=== PATIENT | male | born 1950 | race Caucasian/White ===

== ENCOUNTER 2020-08-27 22:44 | Emergency (ER) | payer OTHER, SELFPAY ==
--- NOTE | ~2020-08-27 | XR_ITS ---
EXAMINATION: XR chest 1V portable EXAM DATE: 08/28/2020 00:01 INDICATION: chest pain TECHNIQUE: Portable AP frontal chest x-ray was obtained. Comparison is made to prior examination from 02/29/2016. FINDINGS: Chronic elevation of the left hemidiaphragm which could indicate paralysis. No confluent co nsolidation, pneumothorax or pleural effusion suspected. Cardiomediastinal silhouette is normal. Ther e are mild bony degenerative changes. IMPRESSION: 1. Elevated left hemidiaphragm, possible paralysis. 2. No acute cardiopulmonary findings. Reviewed, dictated and finalized at location G. [employer]
[2020-08-27 22:43] VITALS: BP 149/79; PULSE 102; RESP 17; TEMP 37.1; O2SAT 97
--- NOTE | 2020-08-27 22:49 | ECG_ITS ---
Measurements Intervals [place] Rate: 102 P: 26 NM: 189 QRS: -44 QRSD: 110 T: 59 QT: 344 QTc: 448 Interpretive Statements SINUS TACHYCARDIA LEFT AXIS DEVIATION BORDERLINE ECG Electronically Signed On 08-28-2020 7:31:04 INDUSTRY CONSULTANT by Damian Rodriguez D.O.
[2020-08-27] MEDS: MORPHINE SULFATE (*CRX) 4 MG/ML INJ IV PUSH (23:07)
[2020-08-27 23:10] LABS: Basophils Percent Auto 0.4 % (0.2-1.2); Eosinophils Absolute Auto 0.1 K/mm3 (0-0.3); Eosinophils Percent Auto 0.6 % (0-4.4); Hematocrit 41.7 % (42.0-52.0); Hemoglobin 14.2 g/dL (14.0-18.0); Immature Granulocyte Absolute 0.03 K/mm3 (0.00-0.031); Immature Granulocyte Percent A 0.3 % (0-0.5); Lymphocytes Absolute Auto 1.78 K/mm3 (0.9-3.2); Mean Corpuscular HGB Conc 34.1 g/dl (32-36); Mean Corpuscular Hemoglobin 30.1 pg (26-34); Mean Corpuscular Volume 88.3 fl (80-100); Mean Platelet Volume 8.7 fl (7.4-10.4); Monocytes Absolute Auto 0.9 K/mm3 (0.1-0.6); Neutrophils Absolute Auto 7.6 K/mm3 (1.3-6.7); Neutrophils Percent Auto 72.7 % (45.5-73.1); Platelet Count Result 277 k/mm3 (150-375); Red Blood Count 4.72 M/mm3 (4.6-6.20); Red Cell Distribution Width 12.4 % (11.5-14.5); White Blood Count 10.5 K/mm3 (4.5-10.0)
[2020-08-27 23:11] VITALS: BP 134/80; PULSE 100; RESP 17; O2SAT 96
[2020-08-27 23:19] LABS: Prothrombin Time 14.1 Seconds (11.1-14.7)
[2020-08-27 23:20] LABS: Partial Thromboplastin Time 29.8 SECONDS (22.3-36.8)
[2020-08-27 23:21] LABS: Alanine Aminotransferase 21 U/L (4-50); Albumin Level 3.9 g/dL (3.5-5.1); Alkaline Phosphatase 42 U/L (38-126); Anion Gap 6 mmol/L (8-16); Aspartate Amino Transferase 33 U/L (17-59); Bilirubin,Total 0.8 mg/dL (0.2-1.3); Blood Urea Nitrogen 15 mg/dL (9-20); Calcium 9.2 mg/dL (8.4-10.2); Carbon Dioxide 29 mmol/L (22-30); Chloride 101 mmol/L (98-107); Estimated CRCL calculation 87 ml/min; Estimated Glomerular Filt Rate > 60; Glucose 228 mg/dL (75-110); Lipase 53 U/L (23-300); Potassium 4.3 mmol/L (3.4-5.0); Sodium 136 mmol/L (137-145)
[2020-08-27 23:32] LABS: Troponin I < 0.012 ng/mL (0.000-0.034)
[2020-08-27] MEDS: NITROGLYCERIN SL 0.4 MG TABLET SUBLINGUAL (23:34)
--- NOTE | 2020-08-27 23:34 | PC.NURSE ---
Vitals pre nitro: 100HR, 14R, 96% RA, 126/84 pain: 6
--- NOTE | 2020-08-27 23:40 | ED.GENADULT ---
HPI - General Adult General Chief complaint: Chest Pain Stated complaint: chest pain Time Seen by Provider: 08/27/20 22:49 History of Present Illness HPI narrative: Patient is 69-year-old gentleman who presents the emergency department with chief complaint of left arm and left-sided chest pain. Patient states the pain began at approximately 11:00 today he took a nitroglycerin that helped it a little bit and then took a subsequent nitroglycerin that did not help the pain. Patient states that he called his primary care physician who is at the [place] and they recommended that he come to the emergency department. The patient waited till this evening and decided to come to the emergency department because the pain was not getting better. The patient states the pain is sharp states it is worse with movement and improved with rest. Related Data Allergies Allergy/AdvReac Type Severity Reaction Status Date / Time No Known Allergies Allergy Unverified 03/01/16 06:59 Review of Systems Review of Systems: Narrative: A 10 system review of systems was completed on the patient and is negative except for what is stated in the HPI. Nursing and ancillary documentation was reviewed. PMFSH Comments Patient has history of cardiac disease has had a prior stent placement Social history the patient is a Exam Narrative: Exam Narrative: GENERAL: Well-appearing, well-nourished, and in no acute distress. HEAD: Normocephalic, atraumatic. EYES: PERRLA and EOMI. ENT: Nares clear, no rhinorrhea or epistaxis. Mucous membranes moist. NECK: Supple. CHEST: Clear to auscultation. No respiratory distress. HEART: Regular rate and rhythm. No murmur heard. Normal peripheral pulses. ABDOMEN: Soft, nontender, nondistended, normal active bowel sounds. EXTREMITIES: Normal range of motion. No edema. There is tenderness to palpation in the left shoulder that reproduces the patient's pain SKIN: Warm, dry, no rash. NEURO: No focal deficits. Alert and oriented x3. PSYCH: Normal mood and affect. Course Course Emergency Course: She showed sinus rhythm no ST elevation or ST depression Troponins were negative x2 chest x-ray showed no evidence of acute finding no widened mediastinum. Vital Signs Vital signs: Vital Signs Temperature 37.1 C 08/27/20 22:43 Pulse Rate 102 H 08/27/20 22:43 Respiratory Rate 17 08/27/20 22:43 Blood Pressure 149/79 H 08/27/20 22:43 Pulse Oximetry 97 08/27/20 22:43 Temperature 37.1 C 08/27/20 22:43 Pulse Rate 74 08/28/20 02:42 Respiratory Rate 18 08/28/20 02:42 Blood Pressure 119/76 08/28/20 02:42 Pulse Oximetry 93 08/28/20 02:42 Medical Decision Making Vital Signs Vital Signs: Vital Signs Temperature 37.1 C 08/27/20 22:43 Pulse Rate 102 H 08/27/20 22:43 Respiratory Rate 17 08/27/20 22:43 Blood Pressure 149/79 H 08/27/20 22:43 Pulse Oximetry 97 08/27/20 22:43 Temperature 37.1 C 08/27/20 22:43 Pulse Rate 74 08/28/20 02:42 Respiratory Rate 18 08/28/20 02:42 Blood Pressure 119/76 08/28/20 02:42 Pulse Oximetry 93 08/28/20 02:42 Lab Data Result diagrams: 08/27/20 23:01 08/27/20 23:01 Labs: Lab Results 08/27/20 08/27/20 08/27/20 Range/Units 23:01 23:01 23:01 WBC 10.5 H (4.5-10.0) K/mm3 RBC 4.72 (4.6-6.20) M/mm3 Hgb 14.2 (14.0-18.0) g/dL Hct 41.7 L (42.0-52.0) % MCV 88.3 (80-100) fl MCH 30.1 (26-34) pg MCHC 34.1 (32-36) g/dl RDW 12.4 (11.5-14.5) % Plt Count 277 (150-375) k/mm3 MPV 8.7 (7.4-10.4) fl Immature Gran % (Auto) 0.3 (0-0.5) % Neut % (Auto) 72.7 (45.5-73.1) % Lymph % (Auto) 17.0 L (18.3-44.2) % [place] % (Auto) 9.0 H (2.6-8.5) % Eos % (Auto) 0.6 (0-4.4) % Baso % (Auto) 0.4 (0.2-1.2) % Lymph # (Auto) 1.78 (0.9-3.2) K/mm3 [place] # (Auto) 0.9 H (0.1-0.6) K/mm3 Eos # (Auto) 0.1 (0-0.3) K/mm3 Baso # (Auto) 0.0 (0.0-0.1
[2020-08-27 23:42] VITALS: BP 105/67; PULSE 108; RESP 13; O2SAT 95
[2020-08-28 00:06] VITALS: BP 120/75; PULSE 96; RESP 18; O2SAT 94
--- NOTE | 2020-08-28 00:06 | PC.NURSE ---
pt states pain has increased since xray moved him notified.
[2020-08-28 00:47] VITALS: BP 123/78; PULSE 94; RESP 21; O2SAT 95
[2020-08-28 01:15] VITALS: BP 114/70; PULSE 78; RESP 20; O2SAT 95
[2020-08-28] MEDS: HYDROcodone/acetaminophen (*CRX) 5-325 MG TABLET 2 TAB PO (01:20)
[2020-08-28 02:23] LABS: Troponin I < 0.012 ng/mL (0.000-0.034)
[2020-08-28 02:42] VITALS: BP 119/76; PULSE 74; RESP 18; O2SAT 93
[2020-08-28 03:03] VITALS: BP 120/72; PULSE 74; RESP 18; O2SAT 94
== END 2020-08-28 03:11 | disposition home or self-care (01) ==
PROVIDERS: Emergency Provider Emergency Medicine
DX: R07.89 Other chest pain (principal); M25.512 Pain in left shoulder; Z95.5 Presence of coronary angioplasty implant and graft; I51.9 Heart disease, unspecified; R00.0 Tachycardia, unspecified
CPT/HCPCS: 36415; 71045; 80053; 83690; 84484; 85025; 85610; 85730; 93005; 96374; 99284; A9270; J2270

== ENCOUNTER 2021-03-07 09:52 | Emergency (ER) | payer OTHER, SELFPAY ==
[2021-03-07 10:03] VITALS: BP 145/83; PULSE 86; RESP 16; TEMP 36.2; O2SAT 97
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
== END 2021-03-07 10:28 | disposition home or self-care (01) ==
PROVIDERS: Emergency Provider Nurse Practitioner
DX: L03.115 Cellulitis of right lower limb (principal); S70.311A Abrasion, right thigh, initial encounter; W20.8XXA Other cause of strike by thrown, projected or falling object, initial encounter; Z87.891 Personal history of nicotine dependence; E11.9 Type 2 diabetes mellitus without complications; I25.2 Old myocardial infarction; E78.00 Pure hypercholesterolemia, unspecified; I10 Essential (primary) hypertension; G47.30 Sleep apnea, unspecified; Z86.73 Personal history of transient ischemic attack (TIA), and cerebral infarction without residual deficits
CPT/HCPCS: 99213; G0463

== ENCOUNTER 2021-06-18 16:41 | Inpatient (IN) | payer OTHER, MEDICARE, SELFPAY ==
[2021-06-18] VITALS (18 sets, daily range): BP systolic 135–179; BP diastolic 73–133; PULSE 68–86; RESP 14–22; TEMP 36.3–36.8; O2SAT 92–100; BMI 34.7
--- NOTE | ~2021-06-18 | CT_ITS ---
EXAMINATION: CT brain wo con DATE: 06/18/2021 17:05 INDICATION: Left-sided weakness and general headache TECHNIQUE: Computed tomography (CT) of the head was performed without intravenous contrast. Sagittal and coronal reconstructions were performed. The mA was adjusted according to patient size. Iterative reconstruction technique was employed. The dose-length product was 681.00 mGy-cm. COMPARISON: head CT and brain MR dated 02/29/2016 FINDINGS: No acute intracranial hemorrhage, acute infarction or abnormal extra axial fluid collection. There is mild scattered white matter hypoattenuation consistent with chronic small vessel ischemic disease. V entricles are normal and symmetric. No mass/mass effect. Changes of bilateral intraocular lens replac ement. Mucosal thickening in the bilateral ethmoid sinuses more prominently at the bilateral maxillar y sinuses which is entirely opacified on the left and partially opacified with dependently layering m ucus on the right. There is also dependently layering mucus in the left frontal sinus with complete o pacification of the left frontoethmoidal recess and anterior most left ethmoid air cells. Mastoid air cells and middle ear cavities are clear. IMPRESSION: 1. No acute intracranial process. 2. Mild scattered white matter hypoattenuation consistent with chronic small vessel ischemic disease. 3. Prominent sinus disease. Reviewed, dictated and finalized at location A. IMPRESSION: 1. No acute intracranial process. 2. Mild scattered white matter hypoattenuation consistent with chronic small ve ssel ischemic disease. 3. Prominent sinus disease.
--- NOTE | ~2021-06-18 | XR_ITS ---
EXAMINATION: XR chest 1V DATE: 06/18/2021 17:12 INDICATION: Left-sided weakness TECHNIQUE: frontal view of the chest was obtained. COMPARISON: Chest radiograph dated 08/27/2020 FINDINGS: Chronic elevation of the left hemidiaphragm. No focal airspace opacities, pulmonary edema, pleural ef fusion or pneumothorax. The cardiomediastinal silhouette is normal. Mild upper thoracic levocurvature . Suture anchors at the right humeral head in the current study and at the left humeral head on the p rior study consistent with rotator cuff repairs. IMPRESSION: 1. Chronic elevation of left hemidiaphragm. No acute cardiopulmonary disease. Reviewed, dictated and finalized at location A.
--- NOTE | ~2021-06-18 | MR_ITS ---
EXAMINATION: MR brain/brain stem wo/w con DATE: 06/19/2021 10:19 INDICATION: Stroke with left-sided weakness, vertigo/dizziness and left-sided facial droop and facial pain TECHNIQUE: Magnetic resonance imaging (MRI) of the brain and brainstem was performed without and with 20 mL Multihance intravenous contrast. Sequences included sagittal and axial T1-weighted FSE, axial diffusion-weighted FS EPI, axial T2*-weighted GRE, axial T2-weighted FLAIR Propeller, axial T2-weight ed Propeller, small amhez-oh-zhqa coronal 3D FIESTA, small jyjgm-id-wkys coronal T1-weighted FSE, and small zzvvk-cc-ftjr axial T1-weighted 3D SPGR. Postcontrast sequences included axial T1-weighted FSE , small tceff-fa-atoq coronal T1-weighted FSE, and small ddkfo-mi-adym axial T1-weighted SPGR. Appare nt diffusion coefficient (ADC) maps were created. COMPARISON: None. FINDINGS: There are no areas of restricted diffusion to suggest acute infarction. No intracranial hemorrhage or abnormal intracranial mass lesion. There are scattered areas of nonspecific increased T2-weighted si gnal intensity in the cerebral white matter, predominantly involving the deep and periventricular whi te matter. There are no intraparenchymal signal abnormalities seen on the other pulse sequences. The ventricles are symmetric and normal in size. There are no abnormal extra-axial fluid collections. [place] w voids are seen in the cerebral arteries on the T2-weighted sequences consistent with their expected patency. Right vertebral artery is dominant. The bilateral internal auditory canals, inner and middl e ear cavities are normal. Very small bilateral mastoid effusions. Prominent mucosal thickening and m ucous filling the left maxillary and nearly filling the right maxillary sinus. Additional moderate mu cosal thickening in the left frontal and bilateral ethmoid sinuses and mild mucosal thickening the bi lateral sphenoid sinuses. Changes of bilateral intraocular lens replacement. There are no areas of ab normal enhancement on the post contrast images. IMPRESSION: 1. No acute intracranial process or abnormally enhancing brain lesions. 2. Mild scattered periventricular predominant nonspecific white matter T2 hyperintensity consistent w ith chronic small vessel ischemic disease. 3. Prominent sinus disease. Reviewed, dictated and finalized at location A. IMPRESSION: 1. No acute intracranial process or abnormally enhancing brain lesions. 2. Mild scattered periventricular predominant nonspecific white matter T2 hyper intensity consistent with chronic small vessel ischemic disease. 3. Prominent sinus disease.
--- NOTE | ~2021-06-18 | MR_ITS ---
EXAMINATION: MR cervical spine wo con DATE: 06/20/2021 14:29 INDICATION: Wheezing in the small muscles of the hand. Left hemiparesis. TECHNIQUE: Magnetic resonance imaging (MRI) of the cervical spine was performed without intravenous c ontrast. Sequences included sagittal T2-weighted FSE, sagittal T2-weighted FS FSE, sagittal T1-weight ed FSE, axial MERGE, and axial T2-weighted FSE. COMPARISON: None FINDINGS: There is 2 mm anterolisthesis of C7 on T1. There is mild chronic anterior wedging of T1 nani tebral body. There is mildly decreased disc height from C2-C3 through C4-C5, moderately decreased dis c height at C5-C6, and severely decreased disc height at C6-C7 with endplate remodeling. The followin g disc levels are specifically discussed: C2-C3: There is a central extrusion. There is moderate right and severe left uncovertebral joint oste oarthritis. There is severe bilateral facet joint osteoarthritis. There is mild right and moderate le ft neural foraminal stenosis. There is mild central canal stenosis. C3-C4: There is a central protrusion. There is mild right and severe left uncovertebral joint osteoar thritis. There is severe bilateral facet joint osteoarthritis. There is mild right and moderate left neural foraminal stenosis. There is mild central canal stenosis. C4-C5: The disc is bulging. There is mild left uncovertebral joint osteoarthritis. There is severe bi lateral facet joint osteoarthritis. There is mild bilateral neural foraminal stenosis. There is mild central canal stenosis. C5-C6: The disc is bulging. There is severe bilateral uncovertebral joint osteoarthritis. There is mo derate bilateral facet joint osteoarthritis. There is moderate right and mild left neural foraminal s tenosis. There is moderate central canal stenosis with ventral and dorsal indentation of the spinal c ord. C6-C7: The disc is bulging. There is severe bilateral uncovertebral joint osteoarthritis. There is mo derate bilateral facet joint osteoarthritis. There is moderate right and mild left neural foraminal s tenosis. There is mild central canal stenosis. C7-T1: There is a central extrusion. There is no uncovertebral joint osteoarthritis. There is severe bilateral facet joint osteoarthritis. There is mild bilateral neural foraminal stenosis. There is no central canal stenosis. IMPRESSION: 1. Severe cervical spondylosis. Reviewed, dictated and finalized at location A.
--- NOTE | ~2021-06-18 | US_ITS ---
EXAMINATION: US carotid duplex BI DATE: 06/19/2021 10:29 INDICATION: Cerebrovascular accident TECHNIQUE: Grayscale, color Doppler, and pulsed Doppler images of the cervical carotid arteries were obtained. The degree of vessel stenosis is placed in one of the following categories: normal, <50%, 5 0-69%, >=70% but less than near-occlusion, near-occlusion, or total occlusion. Note that percent sten osis relative to normal distal artery lumen diameter is indirectly measured from velocity measurement s as described by Darin, et al. Radiology 2003; 229:340-346. COMPARISON: 03/01/2016 carotid duplex Doppler examination FINDINGS: RIGHT: The right common carotid artery (CCA) peak systolic velocity (PSV) is 77.7 cm/s. The right internal c arotid artery (ICA) PSV is 52.8 cm/s. The right ICA end-diastolic velocity (EDV) is 11.0 cm/s. The ri ght ICA/CCA PSV ratio is 0.7. Grayscale and color Doppler images yield an estimate of 0% diameter red uction from plaque in the ICA. The external carotid artery (ECA) PSV is 80.3 cm/s. There is antegrade flow in the right vertebral artery. LEFT: The left CCA PSV is 86.9 cm/s. The left ICA PSV is 62.3 cm/s. The left ICA EDV is 15.5 cm/s. The left ICA/CCA PSV ratio is 0.7. Grayscale and color Doppler images yield an estimate of 0% diameter reduct ion from plaque in the ICA. The ECA PSV is 88.1 cm/s. There is antegrade flow in the left vertebral a rtery. IMPRESSION: 1. No stenosis in the right internal carotid artery. 2. No stenosis in the left internal carotid artery. Reviewed, dictated and finalized at Location A. Reviewed, dictated and finalized at location A.
--- NOTE | 2021-06-18 16:45 | PC.NURSE ---
Per EMS [facility] When EMS called them they were diverted to the closest facility.
--- NOTE | 2021-06-18 16:47 | ECG_ITS ---
Measurements Intervals [place] Rate: 84 P: 39 GA: 174 QRS: -26 QRSD: 117 T: 6 QT: 392 QTc: 464 Interpretive Statements SINUS RHYTHM EARLY PRECORDIAL R/S TRANSITION BORDERLINE T WAVE ABNORMALITY- INFERIOR LEADS BASELINE ARTIFACT- II, III, AVR, AVF, V1, V3-V6 BORDERLINE ECG Electronically Signed On 06-18-2021 17:22:26 CDT by Damian Rodriguez D.O.
--- NOTE | 2021-06-18 16:52 | PC.NURSE ---
Pt states he believes he has a 98% blockage in the artery on the left side of his neck per his doctors at [facility]
[2021-06-18 16:58] LABS: Glucose Point of Care 117 mg/dl (65-105)
--- NOTE | 2021-06-18 17:47 | ED.NEUROSD ---
HPI - Neuro Symptoms/Deficit General Chief Complaint: Neuro Symptoms/Deficit Stated Complaint: CVA symptoms Time Seen by Provider: 06/18/21 17:19 Source: patient Mode of arrival: EMS Limitations: no limitations History of Present Illness HPI Narrative: Patient brought in for gradual onset of difficulty walking since yesterday then woke up this morning and stated walking like he was drunk to to LLE weakness. No previous history of same. Patient had an episode of central vertigo approximately 10 years ago and was diagnosed with left vertebral blockage at 98%. Patient has not had any cerebral events since that time. After noting that he could hardly walk this morning when he woke up he also noted that he had right-sided facial drooping. His girlfriend called EMS and he was brought in for evaluation. [facility] to arrival Timing confirmed by: family member Location: right face History of same: No Severity: moderate Quality: weak Relieving factors: none Exacerbating factors: none Context: gradual onset On Anticoagulants: No Associated symptoms: other (Left-sided posterior orbital headache.) Related Data Home Medications Medication Instructions Recorded Confirmed BuSpar 03/07/21 aspirin [Adult Low Dose Aspirin] PO 03/07/21 sertraline 03/07/21 Allergies Allergy/AdvReac Type Severity Reaction Status Date / Time No Known Allergies Allergy Verified 06/18/21 19:23 Review of Systems Review of Systems: CONSTITUTIONAL: no fever, no weight loss, no confusion EYES: no vision changes, no eye pain ENT: no rhinorrhea, no sore throat, no difficulty swallowing CARDIOVASCULAR: no chest pain, no leg edema, no palpitations RESPIRATORY: no cough, no shortness of breath, no hemoptysis GASTROINTESTINAL: no abdominal pain, no nausea, no vomiting, no diarrhea GENITOURINARY: no flank pain, no dysuria, no hematuria SKIN: no rash, no jaundice MUSCULOSKELETAL: no back pain, no trauma. NEUROLOGIC: positive for headache, no dizziness, positive for LLE 4 focal weakness R sided facial droop PSYCHIATRIC: No hallucinations, no suicidal ideation PMFSH Past Medical History Medical History Anxiety Bowel obstruction Diabetes Heart attack Hypercholesterolemia Hypertension PTSD (post-traumatic stress disorder) Sleep apnea TIA (transient ischemic attack) Surgical History Surgical History H/O inguinal hernia repair Hx of tonsillectomy Social History Social History Smoking status: Former smoker Tobacco type: cigarettes Gender identity (if verbalized by the patient): Male Exam Narrative: General: alert, afebrile, answering all questions appropriately Head: normocephalic, atraumatic Eyes: PERRLA , EOMI bilaterally, anicteric, no injection ENT: moist mucous membranes, oropharynx patent, no rhinorrhea Neck: supple, trachea midline Chest: equal chest rise bilaterally, no chest wall trauma noted Lungs: clear to auscultation bilaterally, respirations unlabored CV: regular rate, no DINA B Abd: soft, non-distended, non-tender, no rebound, no gaurding, negative Lugo's : no CVA tenderness B, bladder non-distended Back: no lumbar bony tenderness. paraspinal muscles without spasm EXT: no deformity noted, moving, calf size equal bilaterally Skin: warm, dry, no pallor Neuro: alert, oriented x 3; alight R sided facial droop; +4/5 LLE strength, otherwise strength intact Psych: affect appropriate, though content normal Course Course Emergency Course: Patient with history of hypertension arrives at 173/103. Blood pressure now improved to 140/83, Tylenol and aspirin given in the ED. Patient with slight right facial drooping diminished left lower extremity strength at 4 out of 5. Left sided headache. Neuro exam otherwise intact patient alert and oriente
[2021-06-18 18:06] LABS: Basophils Percent Auto 0.4 % (0.2-1.2); Eosinophils Absolute Auto 0.2 K/mm3 (0-0.3); Eosinophils Percent Auto 1.6 % (0-4.4); Hematocrit 42.8 % (42.0-52.0); Hemoglobin 14.4 g/dL (14.0-18.0); Immature Granulocyte Absolute 0.07 K/mm3 (0.00-0.031); Immature Granulocyte Percent A 0.6 % (0-0.5); Lymphocytes Absolute Auto 2.05 K/mm3 (0.9-3.2); Lymphocytes Percent Auto 18.4 % (18.3-44.2); Mean Corpuscular HGB Conc 33.6 g/dl (32-36); Mean Corpuscular Hemoglobin 30.1 pg (26-34); Mean Corpuscular Volume 89.5 fl (80-100); Mean Platelet Volume 8.7 fl (7.4-10.4); Monocytes Percent Auto 8.6 % (2.6-8.5); Neutrophils Absolute Auto 7.8 K/mm3 (1.3-6.7); Neutrophils Percent Auto 70.4 % (45.5-73.1); Platelet Count Result 347 k/mm3 (150-375); Red Blood Count 4.78 M/mm3 (4.6-6.20); White Blood Count 11.1 K/mm3 (4.5-10.0)
[2021-06-18 18:17] LABS: Potassium 3.8 mmol/L (3.4-5.0)
[2021-06-18 18:18] LABS: Partial Thromboplastin Time 27.7 SECONDS (22.3-36.8); Prothrombin Time 12.7 Seconds (11.1-14.7)
[2021-06-18] MEDS: ASPIRIN 81 MG CHEWABLE TABLET 324 MG PO (18:21)
[2021-06-18] MEDS: ACETAMINOPHEN 500 MG TABLET 1000 MG PO (18:22)
[2021-06-18 18:23] LABS: Anion Gap 7 mmol/L (8-16); Blood Urea Nitrogen 13 mg/dL (9-20); Calcium 9.3 mg/dL (8.4-10.2); Carbon Dioxide 30 mmol/L (22-30); Chloride 102 mmol/L (98-107); Estimated CRCL calculation 92 ml/min; Estimated Glomerular Filt Rate > 60; Glucose 119 mg/dL (65-110); Sodium 139 mmol/L (137-145)
[2021-06-18 18:30] LABS: Troponin I < 0.012 ng/mL (0.000-0.034)
--- NOTE | 2021-06-18 19:32 | PC.NURSE ---
pt a/o x 4. verbalized knowledge of admission this pm. no s/s of distress. awaiting inpt. room assignment.
--- NOTE | 2021-06-18 20:20 | ADMGEN ---
This patient, Alex Knott, was admitted to Medical Room 248-01. Patient/family oriented to hospital policies and general routines including ID bracelet, bed and alarms, visiting hours, pain management, procedures, bathroom and other care routines, personal items, smoking policy, room service/diet, and visiting hours. Information on how to activate the Rapid Response Team has been discussed. Patient/Family are encouraged to report perceived risks to care and to ask questions if they do not understand what they are told or what they should do.
--- NOTE | 2021-06-18 20:35 | ADMGEN ---
This patient, Alex Knott, was admitted to Medical Room 248-01 @2024. Patient/family oriented to hospital policies and general routines including ID bracelet, bed and alarms, visiting hours, pain management, procedures, bathroom and other care routines, personal items, smoking policy, room service/diet, and visiting hours. Information on how to activate the Rapid Response Team has been discussed. Patient/Family are encouraged to report perceived risks to care and to ask questions if they do not understand what they are told or what they should do.
[2021-06-18 21:52] LABS: Troponin I < 0.012 ng/mL (0.000-0.034)
[2021-06-18 22:41] LABS: Ethanol < 10 mg/dL (<10)
--- NOTE | 2021-06-18 23:41 | PM.IMHP ---
H&P: HPI History of Present Illness Date/Time: 06/18/21 23:41 this is a 70-year-old male patient who typically goes to the [place]. the patient stated that he has had a history of central vertical in the past which was approximately 10 years ago. 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 The patient stated he woke up this morning and felt dizzy and felt weak to his left arm left leg. Patient also stated that he had some blurriness the left eye that came and went he also had severe pain in left side of his face. The patient stated that he thought it was just vertigo any fluid back to bed it would get better. However the patient stated he did get any better and got worse. The patient states [facility] and they told him that he should call 911 and proceed to the nearest emergency room because it sounds like he was having a stroke. The patient was not aware of any be a diversion. The patient was okay with staying here. The patient was noted to have a facial droop at home and states that he has weakness to his left upper arm left lower extremity. The patient has had surgery to his right wrist so he has weakness to that right arm because he had tendon surgery on that side. The patient was given aspirin and Tylenol. The patient's white count was 11.1. Troponin negative x2. Ethyl alcohol was negative. The patient stated that he was walking around like he was drunk at home. However the patient stated that he does not drink. Chest x-ray was read as chronic elevation in left hemo diaphragm. No acute cardiopulmonary disease. Head CT was read as no acute intracranial process. Mild scattered white matter hypoattenuation consistent with chronic small vessel ischemic disease. Prominent sinus disease. The patient is being admitted for inpatient services on the date of service of 06/18/2021. Chief Complaint: Left-sided weakness Review of Systems Review of Systems: All systems reviewed & are unremarkable except as noted in HPI and below Constitutional: Constitutional: Reports as per HPI and Reports no additional constitutional complaints Eyes: Eyes: Reports as per HPI and Reports no additional eye complaints ENT: Reports system reviewed and no additional complaints, except as documented and Reports Normal hearing present Cardiovascular: Cardiovascular: Reports no additional cardiovascular complaints Respiratory: Respiratory: Reports no additional respiratory complaints and Reports no additional respiratory complaints Gastrointestinal: Gastrointestinal: Reports as per HPI and Reports no additional gastrointestinal complaints Musculoskeletal: Musculoskeletal: Reports no additional musculoskeletal complaints Integumentary/Breasts: Skin/Breast: Reports system reviewed and no additional complaints, except as docu and Reports as per HPI Neurologic: Reports system reviewed and no additional complaints, except as documented, Reports as per HPI and Reports Normal hearing present Psychiatric: Psychiatric: Reports no additional psychiatric complaints and Reports as per HPI Endocrine: Endocrine: Reports no additional endocrine complaints Hematologic/Lymphatic: Hematologic/Lymphatic: Reports no additional hematologic/lymphatic complaints Allergic/Immunologic: Allergic/Immunologic: Reports no additional allergic/immunologic complaints [facility] Past Medical History Medical History (Updated 06/19/21 @ 00:01 by Alyssia Murphy NP) Anxiety Bowel obstruction CAD (coronary artery disease) Carotid artery disease Diabetes Heart attack Hypercholesterolemia Hypertension PTSD (post-traumatic stress disorder) Sleep apnea TIA (transient ischemic attack) Surgical History Surgical History (Updated 06/18/21 @ 23:54 by Alyssia Murphy NP) H/O cataract extraction bilateral H/O hand surgery right hand with a tend
[2021-06-19] VITALS (10 sets, daily range): BP systolic 114–140; BP diastolic 70–82; PULSE 55–77; RESP 16; TEMP 36.5–36.8; O2SAT 93–96
[2021-06-19 01:10] LABS: Troponin I < 0.012 ng/mL (0.000-0.034)
[2021-06-19 06:20] LABS: Basophils Absolute Auto 0.1 K/mm3 (0.0-0.1); Basophils Percent Auto 0.6 % (0.2-1.2); Eosinophils Absolute Auto 0.3 K/mm3 (0-0.3); Eosinophils Percent Auto 3.5 % (0-4.4); Hemoglobin 13.8 g/dL (14.0-18.0); Immature Granulocyte Absolute 0.06 K/mm3 (0.00-0.031); Immature Granulocyte Percent A 0.7 % (0-0.5); Lymphocytes Absolute Auto 1.78 K/mm3 (0.9-3.2); Mean Corpuscular HGB Conc 33.7 g/dl (32-36); Mean Corpuscular Hemoglobin 29.9 pg (26-34); Mean Corpuscular Volume 88.7 fl (80-100); Monocytes Absolute Auto 0.9 K/mm3 (0.1-0.6); Monocytes Percent Auto 10.1 % (2.6-8.5); Neutrophils Absolute Auto 5.4 K/mm3 (1.3-6.7); Neutrophils Percent Auto 64.1 % (45.5-73.1); Platelet Count Result 356 k/mm3 (150-375); Red Blood Count 4.62 M/mm3 (4.6-6.20); Red Cell Distribution Width 13.1 % (11.5-14.5); White Blood Count 8.5 K/mm3 (4.5-10.0)
[2021-06-19 06:31] LABS: Lactic Acid Reflex 0.9 mmol/L (0.7-2.1)
[2021-06-19 06:37] LABS: Alanine Aminotransferase 14 U/L (4-50); Albumin Level 3.9 g/dL (3.5-5.1); Alkaline Phosphatase 41 U/L (38-126); Anion Gap 8 mmol/L (8-16); Aspartate Amino Transferase 17 U/L (17-59); Bilirubin,Total 0.7 mg/dL (0.2-1.3); Blood Urea Nitrogen 14 mg/dL (9-20); Calcium 9.1 mg/dL (8.4-10.2); Carbon Dioxide 31 mmol/L (22-30); Chloride 102 mmol/L (98-107); Estimated CRCL calculation 82 ml/min; Estimated Glomerular Filt Rate > 60; Glucose 112 mg/dL (65-110); Lactate Dehydrogenase 312 U/L (313-618); Potassium 3.5 mmol/L (3.4-5.0); Sodium 141 mmol/L (137-145)
[2021-06-19 06:49] LABS: Hemoglobin A1C 5.7 % (<5.7)
[2021-06-19 07:54] LABS: Glucose Point of Care 116 mg/dl (65-105)
[2021-06-19] MEDS: SERTRALINE HCL 50 MG TABLET 100 MG PO (08:01)
[2021-06-19] MEDS: ISOSORBIDE MONONITRATE 15 MG TAB.ER.24H PO (08:01)
[2021-06-19] MEDS: ASPIRIN 325 MG ENTERIC TABLET PO (08:01)
[2021-06-19 11:54] LABS: Glucose Point of Care 120 mg/dl (65-105)
--- NOTE | 2021-06-19 12:57 | PM.IMPN ---
Progress Note: A&P Assessment and Plan (1) Cerebrovascular accident: Qualifiers: CVA mechanism: other Qualified Code(s): I63.89 - Other cerebral infarction Code(s): I63.9 - Cerebral infarction, unspecified Status: Acute Assessment and Plan: Left sided weakness and facial droop yesterday Head CT with no acute intracranial process Trop neg x3 Continue with an aspirin MRI results pending Carotid Dopplers neg for stenosis Echo pending PT/OT/ST (2) Diabetes: Code(s): E11.9 - Type 2 diabetes mellitus without complications Status: Chronic Assessment and Plan: Hold Jardiance and metformin for now. SSI, Accu-Cheks AC and HS Check A1c (3) Hypertension: Code(s): I10 - Essential (primary) hypertension Status: Chronic Assessment and Plan: Elevated yesterday Stable today No home meds Monitor (4) Hypercholesterolemia: Code(s): E78.00 - Pure hypercholesterolemia, unspecified Status: Chronic Assessment and Plan: Lipid profile pending (5) Sleep apnea: Code(s): G47.30 - Sleep apnea, unspecified Status: Chronic Assessment and Plan: Continue the CPAP machine per home settings (6) PTSD (post-traumatic stress disorder): Code(s): F43.10 - Post-traumatic stress disorder, unspecified Status: Chronic Assessment and Plan: Continue with sertraline (7) Anxiety: Code(s): F41.9 - Anxiety disorder, unspecified Status: Chronic Assessment and Plan: Continue BuSpar and sertraline (8) CAD (coronary artery disease): Code(s): I25.10 - Atherosclerotic heart disease of [place] coronary artery without angina pectoris Status: Chronic Assessment and Plan: Continue isosorbide an aspirin Subjective Date/time seen: 06/19/21 12:57 Interval history: pt seen and evaluate; labs, VS and diagnostic reports reviewed; pt does endorse a right sided HUI this a.m.; no acute events overnight Review of Systems Review of Systems: All systems reviewed & are unremarkable except as noted in HPI and below Exam Const: General: no acute distress, alert and awake Orientation/consciousness: patient oriented x3 HENMT: Head: normocephalic and atraumatic Ears: hearing grossly normal bilaterally Face and sinus: face symmetric Mouth: Yes Normal oral and palatal mucosa present Eyes: EOM: EOMs intact bilaterally Neck: Neck: full ROM, trachea midline and no JVD Resp: Effort & Inspection: normal respiratory effort Auscultation: clear to auscultation bilaterally Cardio: Jugular venous distension: no JVD Rate: regular rate Rhythm: regular rhythm Heart sounds: S1 normal heart sound present and S2 normal heart sound present GI: GI Palp: Yes Soft to palpation Auscultation: normal bowel sounds : General: Yes no CVA tenderness Skin: General skin exam: normal color Rashes: no rashes Neuro: General: patient oriented x3 and CN's II-XI intact bilaterally Speech: normal speech Psych: Appearance: grossly normal Affect: normal affect Judgement: Good judgement present (Psych) Objective Data Vital Signs Vital Signs: Vital Signs - 24 hr 06/18/21 16:42 06/18/21 16:46 06/18/21 17:13 Temperature 36.8 C Pulse Rate 78 77 80 Respiratory Rate 18 14 22 H Blood Pressure 179/103 H Pulse Oximetry 100 97 95 06/18/21 17:31 06/18/21 17:47 06/18/21 18:00 Temperature Pulse Rate 79 78 81 Respiratory Rate 19 19 20 Blood Pressure 154/94 H Pulse Oximetry 95 93 94 06/18/21 18:15 06/18/21 18:23 06/18/21 18:32 Temperature Pulse Rate 86 75 80 Respiratory Rate 21 H 18 17 Blood Pressure 156/133 H Pulse Oximetry 92 98 98 06/18/21 18:55 06/18/21 19:01 06/18/21 19:20 Temperature Pulse Rate 73 74 71 Respiratory Rate 19 19 16 Blood Pressure 141/83 H Pulse Oximetry 96 96 97 06/18/21 19:30 06/18/21 19:31 06/18/21 19:45 Temperature Pulse Rate 73 73 73 Respiratory Rat
[2021-06-19 14:49] LABS: Cholesterol 164 mg/dL (0-200); HDL Direct 33 mg/dL; Triglycerides 111 mg/dL (<150)
[2021-06-19 15:01] LABS: LDL Cholesterol Direct 110 mg/dL
[2021-06-19 16:32] LABS: Glucose Point of Care 158 mg/dl (65-105)
[2021-06-19 21:00] LABS: Glucose Point of Care 104 mg/dl (65-105)
[2021-06-20] VITALS (9 sets, daily range): BP systolic 122–128; BP diastolic 52–81; PULSE 62–78; RESP 16–20; TEMP 36.6–36.9; O2SAT 94–96
--- NOTE | 2021-06-20 | ECHO_ITS ---
Patient Info Name: Alex Knott Age: 70 years : 1950 Gender: Male Ht: 67 in Wt: 221 lbs BSA: 2.22 m2 HR: 78 bpm BP: 128 / 81 mmHg Heart Rhythm: Sinus Rhythm Technical Quality: Good Exam Date: 06/20/2021 1:07 PM Exam Location: [facility] Pulmonary Exam Room: 248 Patient Status: Inpatient Admit Date: 06/18/2021 Staff Ordering Physician: Alyssia Murphy NP Forest Fire Prevention Manager: Bee Oropeza RDCS Attending Provider: Risa Vargas MD Referring Physician: Katherine ROBLERO; Exam Type: CA echo doppler w bubble study Study Info Indications - left side weakness Complete two-dimensional, color flow and Doppler transthoracic echocardiogram is performed with agitated saline. Contrast/Agitated Saline Contrast/Ag. Saline: Agitated Saline Amount: 20.00 ml Administered By: Unique Le RN Existing IV Access: Yes IV Access Condition: patent with no signs of infiltration Summary 1. Technically difficult study with limited views. Regional wall motion assessment limited due to poor endomyocardial border definition. 2. Left ventricular chamber dimension is normal. 3. Left ventricular systolic function is normal, estimated at 60-65%. 4. The left ventricular diastolic function is grade I diastolic dysfunction. 5. There is trace mitral valve regurgitation. 6. There is no aortic valve stenosis. 7. There is trace tricuspid valve regurgitation. 8. No pulmonary hypertension, estimated pulmonary arterial systolic pressure is 26 mmHg. 9. No evidence of nxmdy-wk-ziov shunt with injection of agitated saline with and without Valsalva. Left Ventricle Left ventricular chamber dimension is normal. Left ventricular systolic function is normal, estimated at 60-65%. There is no increased left ventricular wall thickness. The left ventricular diastolic function is grade I diastolic dysfunction. Technically difficult study with limited views. Regional wall motion assessment limited due to poor endomyocardial border definition. Right Ventricle Right ventricular chamber dimension is normal. Right ventricular systolic function is normal. Left Atria Left atrial chamber dimension is normal. Right Atria Right atrial chamber dimension is normal. Atrial Septum No evidence of gnedj-nj-rdgz shunt with injection of agitated saline with and without Valsalva. Aortic Valve The aortic valve is probable trileaflet. There is mild aortic valve sclerosis. There is no aortic valve stenosis. There is no aortic valve regurgitation. Pulmonic Valve The pulmonic valve is not well visualized. Mitral Valve The mitral valve has thickened leaflets. There is trace mitral valve regurgitation. Tricuspid Valve The tricuspid valve leaflets are normal. There is trace tricuspid valve regurgitation. No pulmonary hypertension, estimated pulmonary arterial systolic pressure is 26 mmHg. Pericardium/Pleural The pericardium appears not well visualized. Inferior Vena Cava Normal inferior vena cava with >50% collapse upon inspiration consistent with normal right atrial pressure, 5 mmHg. Aorta The aortic root size at the sinus of Valsalva is normal. There is mild aortic atherosclerosis. Left Ventricular Outflow Tract Name Value Normal LVOT
[2021-06-20 08:08] LABS: Glucose Point of Care 147 mg/dl (65-105)
[2021-06-20] MEDS: SERTRALINE HCL 50 MG TABLET 100 MG PO (09:47)
[2021-06-20] MEDS: ASPIRIN 325 MG ENTERIC TABLET PO (09:47)
[2021-06-20] MEDS: ISOSORBIDE MONONITRATE 15 MG TAB.ER.24H PO (09:47)
--- NOTE | 2021-06-20 10:03 | WPDNEURCNPN ---
Assessment and Plan Additional Plan reports history of left carotid artery occlusion about 98%, but carotid ultrasound here unremarkable, MRI of the brain is negative, clinical examination is compatible with wasting of the small muscles of the hand particularly on the left side will obtain the MRI of cervical spine then he might need the EMG nerve conduction study otherwise Consult date: 06/20/21 Time Seen: 09:30 HPI: Alex Knott is a 70 year old male has been admitted to the hospital for the complains of waking up in the morning, feeling dizzy and weak involving the left upper and left lower extremity in addition to the blurriness of the vision involving the left eye and face pain on the left side of the face he did not get better he calls the [facility] where he usually goes for his routine care who advised him to proceed to the nearest emergency room he was noted to have facial droop along with the weakness of the left upper and left lower extremity he has had the surgery on his right upper extremity and he had some weakness of the right upper extremity as well was given aspirin in the emergency room alcohol level were negative though he complained of being drunk at home when he was walking without drinking alcohol further evaluation documented elevated left hemo diaphragm negative CT scan, his past history is consistent with coronary artery disease, carotid artery disease, diabetes mellitus, hypercholesterolemia, hypertension, post traumatic stress disorder and history of sleep apnea and TIA is a former smoker never drinker and medication at the time of admission included the aspirin metformin Isiah RD aunts and isosorbide as well routine lab studies are unremarkable alcohol level was less than 10 MRI documented scattered periventricular nonspecific white matter T2 hyperintensity consistent with chronic small vessel disease and prominent sinus disease as Doppler study of the carotid was negative x-ray chest with chronic elevated left hemidiaphragm Review of Systems Review of Systems: All systems reviewed & are unremarkable except as noted in HPI and below PMFSH Past Medical History Medical History Anxiety Bowel obstruction CAD (coronary artery disease) Carotid artery disease Diabetes Heart attack Hypercholesterolemia Hypertension PTSD (post-traumatic stress disorder) Sleep apnea TIA (transient ischemic attack) Surgical History Surgical History H/O cataract extraction bilateral H/O hand surgery right hand with a tendon tear H/O heart artery stent x2 H/O inguinal hernia repair Hx of tonsillectomy Family History Family History Father Cerebrovascular accident Sibling Cerebrovascular accident Sibling No problems noted. Mother Carcinoma of colon Social History Social History Social History: the patient served in [employer]. He is and lives with his significant other for many years. The significant other is a durable power securities attorney for healthcare. The patient has 2 children. He is retired from managing a gas station. Patient desires to be a full code. he denies any alcohol marijuana or illicit drugs. Code status full code Smoking status: Former smoker Tobacco type: cigarettes Additional smoking assessment comments: quit smoking 1969 Alcohol intake: never Substance use: never Substance use type: does not use Gender identity (if verbalized by the patient): Male Spiritual care concerns: No Meds Home Medications and Allergies Home Medications Medication Instructions Recorded Confirmed Type aspirin [Adult Low Dose Aspirin] 81 mg PO DAILY 06/18/21 06/18/21 History buspirone 5 mg PO BID PRN 06/18/21 06/18/21 History empagliflozin [Jardiance] 25 mg PO DAILY 06/18/21 06/18/21 Mi
--- NOTE | 2021-06-20 10:14 | PM.IMPN ---
Progress Note: A&P Assessment and Plan (1) Cerebrovascular accident: Qualifiers: CVA mechanism: other Qualified Code(s): I63.89 - Other cerebral infarction Code(s): I63.9 - Cerebral infarction, unspecified Status: Acute Assessment and Plan: R/O Left sided weakness and facial droop yesterday Head CT with no acute intracranial process Trop neg x3 Continue with an aspirin MRI-->No acute intracranial process or abnormally enhancing brain lesions. Carotid Dopplers neg for stenosis Echo pending Neurology following, recommendations appreciated orthostatic VS Plan for MRI of cervical spine PT/OT/ST (2) Diabetes: Code(s): E11.9 - Type 2 diabetes mellitus without complications Status: Chronic Assessment and Plan: Hold Jardiance and metformin for now. SSI, Accu-Cheks AC and HS Check A1c (3) Hypertension: Code(s): I10 - Essential (primary) hypertension Status: Chronic Assessment and Plan: Elevated yesterday Stable today No home meds Monitor (4) Hypercholesterolemia: Code(s): E78.00 - Pure hypercholesterolemia, unspecified Status: Chronic Assessment and Plan: Lipid profile pending (5) Sleep apnea: Code(s): G47.30 - Sleep apnea, unspecified Status: Chronic Assessment and Plan: Continue the CPAP machine per home settings (6) PTSD (post-traumatic stress disorder): Code(s): F43.10 - Post-traumatic stress disorder, unspecified Status: Chronic Assessment and Plan: Continue with sertraline (7) Anxiety: Code(s): F41.9 - Anxiety disorder, unspecified Status: Chronic Assessment and Plan: Continue BuSpar and sertraline (8) CAD (coronary artery disease): Code(s): I25.10 - Atherosclerotic heart disease of [place] coronary artery without angina pectoris Status: Chronic Assessment and Plan: Continue isosorbide an aspirin Time Spent With Patient Time: DVT Ppx: Lovenox Code status: FULL Will need [facility] approved by OR PCP Subjective Date/time seen: 06/20/21 10:14 Interval history: 06/19 pt seen and evaluate; labs, VS and diagnostic reports reviewed; pt does endorse a right sided HUI this a.m.; no acute events overnight 06/20 pt up to bedside with OT; continues with dizziness and HUI. ECHO pending Review of Systems Review of Systems: All systems reviewed & are unremarkable except as noted in HPI and below Exam Const: General: no acute distress, alert and awake Orientation/consciousness: patient oriented x3 HENMT: Head: normocephalic and atraumatic Ears: hearing grossly normal bilaterally Face and sinus: face symmetric Mouth: Yes Normal oral and palatal mucosa present Eyes: EOM: EOMs intact bilaterally Neck: Neck: full ROM, trachea midline and no JVD Resp: Auscultation: clear to auscultation bilaterally Cardio: Jugular venous distension: no JVD Rate: regular rate Rhythm: regular rhythm Heart sounds: S1 normal heart sound present and S2 normal heart sound present GI: Auscultation: normal bowel sounds : General: Yes no CVA tenderness Back/Spine/Pelvis: Back: no CVA tenderness Skin: General skin exam: normal color Rashes: no rashes Neuro: General: patient oriented x3 Speech: normal speech Extrem: General: full ROM and other (generalized weakness) Psych: Appearance: grossly normal Affect: normal affect Judgement: Good judgement present (Psych) Objective Data Vital Signs Vital Signs: Vital Signs - 24 hr 06/19/21 12:00 06/19/21 15:45 06/19/21 16:00 Temperature 36.7 C Pulse Rate 75 66 64 Respiratory Rate 16 Blood Pressure 140/82 Pulse Oximetry 93 06/19/21 20:00 06/19/21 21:34 06/20/21 00:00 Temperature 36.8 C Pulse Rate 63 65 65 Respiratory Rate 16 16 Blood Pressure 126/71 Pulse Oximetry 94 94 06/20/21 04:00 06/20/21 05:35 06/20/21 08:00 Temperature 36.7 C 36.9 C Pulse Rate 62 65 71 Respiratory R
[2021-06-20 11:53] LABS: Glucose Point of Care 120 mg/dl (65-105)
[2021-06-20 16:45] LABS: Glucose Point of Care 106 mg/dl (65-105)
[2021-06-20 20:12] LABS: Glucose Point of Care 141 mg/dl (65-105)
[2021-06-21] VITALS: BP 126/70; PULSE 67; PULSE 68; RESP 20; TEMP 37.3; O2SAT 98
[2021-06-21 04:00] VITALS: PULSE 64
[2021-06-21 05:08] VITALS: BP 114/69; PULSE 74; RESP 20; TEMP 36.9; O2SAT 97
[2021-06-21 07:54] LABS: Glucose Point of Care 115 mg/dl (65-105)
[2021-06-21 08:00] VITALS: PULSE 65
[2021-06-21] MEDS: ISOSORBIDE MONONITRATE 15 MG TAB.ER.24H PO (08:18)
[2021-06-21] MEDS: ENOXAPARIN 40 MG/0.4 ML SYRINGE SUB-Q (08:18)
[2021-06-21] MEDS: SERTRALINE HCL 50 MG TABLET 100 MG PO (08:18)
[2021-06-21] MEDS: ASPIRIN 325 MG ENTERIC TABLET PO (08:18)
[2021-06-21 11:28] LABS: Glucose Point of Care 108 mg/dl (65-105)
[2021-06-21 12:00] VITALS: PULSE 66
[2021-06-21 14:00] VITALS: BP 105/54; PULSE 68; RESP 20; TEMP 36.5; O2SAT 95
--- NOTE | 2021-06-21 15:14 | PM.DS ---
DS: Admitting Diagnosis Discharge Date 06/21/21 Admitting Diagnosis Left sided weakness DS: Discharge Diagnosis Discharge Diagnosis (1) Left-sided weakness: Code(s): R53.1 - Weakness Status: Acute Assessment and Plan: The patient is a 70-year-old man with a history of diabetes, CAD, hypertension, who presented to the emergency room with worsening left-sided weakness which began Sunday06/17/2021 and became worse on Sunday06/18/2021. Initial vitals showed elevated blood pressure 179/103, heart rate 78, afebrile, normal oxygenation on room air. Initial labs showed elevated white count 11,100, normal coag panel, normal BMP other than elevated glucose at 119. Troponin negative x3. Normal ethyl alcohol level. Head CT shows no acute intracranial process, mild scattered white matter hypoattenuation consistent with chronic small-vessel disease. Chest x-ray showed chronic elevation left hemidiaphragm. No acute cardiopulmonary disease. Carotid Dopplers no stenosis to bilateral internal carotid arteries. MRI brain showed no acute intracranial process or abnormality enhancing brain lesions. Echocardiogram showed no evidence of fvuzr-vn-rmha shunt, EF normal 60-65%, grade 1 diastolic dysfunction. Patient was seen by Dr. Yates due to his left-sided weakness and recommended a cervical spine MRI which showed severe cervical spondylosis. C5-C6 has moderate central canal stenosis with ventral and dorsal indentation of the spinal cord. I called and talked to Dr. Yates about these findings who recommends following up in his office in a week and Dr. Yates will refer the patient to [place] neuro surgery or spinal surgery about his cervical findings. The patient continues to have left-sided weakness but was able to walking 85 ft with a walker with therapy. Patient feels comfortable with going home at this time. We were going to set up home health but [facility] He lives with a friend who will be there to take care of him. Return to ER warnings given. Follow-up with primary care in 1 week. Recommended follow-up with the neurologist in 1 week for further referrals. Any new or worsening symptoms return to the emergency room. The patient understands and agrees the plan all questions answered. 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 The patient is asymptomatic to these P drops without any palpitations, lightheadedness, syncope. No further workup needed at this time could be secondary to stroke-like symptoms. He does not need a cardiology technologist after discharge he will need to follow-up with primary care provider for further evaluation. DS: Summary Hospital Course Hospital Course: See above Status at Discharge Cognitive/behavioral status at discharge: Stable, improved. Time Spent with Patient Time attestation: Total time spent providing and/or coordinating discharge services: 43 Time spent: Greater than 30 minutes Exam Narrative: General: 70-year-old man sitting up in bed watching TV. Appears comfortable. In no acute distress. Skin: No jaundice or cyanosis. Good skin turgor. Neck: Full range of motion. Supple. Respiratory: Lungs are clear to auscultation bilaterally. No bony chest wall tenderness. Cardiovascular: The heart has a regular rate and rhythm without murmur. No carotid bruits. Lower extremities: No lower extremity edema. Distal pulses are easily palpated. No calf tenderness to
== END 2021-06-21 16:05 | disposition home or self-care (01) | DRG 552 ==
LOC: ANHED 18:45 → ANH2MED 21:15
PROVIDERS: Emergency Medicine; Nurse Practitioner; Nurse Practitioner Adult Health; Admitting Provider Internal Medicine Critical Care Medicine; Emergency Provider Emergency Medicine; Visit Provider Physician Assistant
DX: M47.892 Other spondylosis, cervical region (principal); M48.02 Spinal stenosis, cervical region; M62.81 Muscle weakness (generalized); R29.810 Facial weakness; R42 Dizziness and giddiness; R51.9 Headache, unspecified; I44.1 Atrioventricular block, second degree; I25.10 Atherosclerotic heart disease of native coronary artery without angina pectoris; F41.9 Anxiety disorder, unspecified; E11.9 Type 2 diabetes mellitus without complications; I10 Essential (primary) hypertension; F43.10 Post-traumatic stress disorder, unspecified; G47.30 Sleep apnea, unspecified; E78.00 Pure hypercholesterolemia, unspecified; I25.2 Old myocardial infarction; Z86.73 Personal history of transient ischemic attack (TIA), and cerebral infarction without residual deficits; Z87.891 Personal history of nicotine dependence; Z95.5 Presence of coronary angioplasty implant and graft
CPT/HCPCS: 36415; 70450; 70553; 71045; 72141; 80048; 80053; 80061; 80307; 82728; 82948; 83036; 83605; 83615; 83735; 84443; 84484; 85025; 85610; 85730; 92523; 93005; 93880; 96375; 97110; 97116; 97162; 97165; 97535; 99285; A9270; A9577; C8929; J1650